=== PATIENT | female | born 1980 | race African-American/Black ===

== ENCOUNTER 2016-12-06 15:18 | Emergency (ER) | payer MEDICAID, OTHER ==
[~2016-12-06] VITALS: Ht 160 cm; Wt 77.0 kg
[~2016-12-06 15:18] MED LIST: METR-1 PO
[2016-12-06 15:21] VITALS: BP 119/90; PULSE 83; RESP 16; TEMP 98.4; O2SAT 100
[2016-12-06] MEDS ORDERED: METR-1 PO (15:44)
--- NOTE | 2016-12-06 15:56 | PD ---
HPI Chief Complaint: Cold / Flu Symptoms Time Seen by Provider: 15:44 Travel History International Travel<30 days: No Contact w/Intl Traveler<30days: No Traveled to known affect area: No History of Present Illness HPI 36-year-old female presents to the emergency room for evaluation of nonproductive cough, congestion, sore throat, and left ear pain for the past 3 days. Patient states she has been extremely fatigued and nauseous as well. She has not actually vomited. She has been taking dyov-lui-kqslind day and night medication and using cough drops without significant relief in symptoms. Patient worked all day yesterday and is requesting a work note for today. Denies objective fever, chills. She also is requesting prescription for Flagyl because she was diagnosed with chlamydia, Trichomonas, and bacterial vaginosis in June (5 months ago) and given a prescription at that time but was unable to fill it. States she recently got full Medicaid and can now afford the Flagyl. Patient reports continued vaginal discharge, itching, an occasional dysuria. States she has not had sexual intercourse since she was treated in June. [facility] Past Medical History Depression: Yes Diabetes: No Diminished Hearing: No Psychiatric: Yes (depression) Reproductive: Yes (CERVICAL DYSPLASIA) Immunizations Current: Yes ?: Not LMP: 3 WEEKS : 3 Para: 2 Miscarriage: 1 Past Surgical History Section: No Gynecologic Surgery: Yes (LEEP, LAPROSCOPY) Tonsillectomy: Yes Other Surgery: Yes ([facility]) Social History Alcohol Use: Yes ("VERY RARELY") Tobacco Use: Yes (1/2 PPD) Substance Use: Yes ("MARIJUANA OCCASIONALLY, NOT RECENT" STATED 06/22/16) Allergies-Medications (Allergen,Severity, Reaction): Coded Allergies: No Known Allergies (Unverified , 12/06/16) Reported Meds & Prescriptions Reported Meds & Active Scripts Active No Active Prescriptions or Reported Medications Review of Systems Except as stated in HPI: all other systems reviewed are Neg Physical Exam Narrative GENERAL: Well-nourished, well-developed female in no acute distress. Afebrile. Ambulatory. SKIN: Warm and dry. HEAD: Normocephalic. EYES: No scleral icterus. No injection or drainage. NECK: Supple, trachea midline. No JVD or lymphadenopathy. EARS: Bilateral pinnae and external canals appear within normal limits. Bilateral tympanic membranes without erythema, dullness or perforation. NOSE: Nasal turbinates appear normal without nasal blood, purulent drainage or septal hematoma. THROAT: Mucosa pink and moist. No erythema or exudates. No uvular edema. No uvular, palatal, or tonsillar deviation. Airway patent. CARDIOVASCULAR: Regular rate and rhythm without murmurs, gallops, or rubs. RESPIRATORY: Breath sounds equal bilaterally. No accessory muscle use. No crackles, rales, wheezes, or rhonchi. Data Data Last Documented VS Vital Signs Date Time Temp Pulse Resp B/P Pulse Ox O2 Delivery O2 Flow Rate FiO2 12/06/16 15:21 98.4 83 16 119/90 100 MDM Medical Decision Making Medical Screen Exam Complete: Yes Emergency Medical Condition: Yes Medical Record Reviewed: Yes Differential Diagnosis URI versus bronchitis versus sinusitis versus influenza Narrative Course 36-year-old female presents to the emergency room for evaluation of cough and cold symptoms for the past 3 days. Patient is afebrile and well-appearing in the emergency room. Vital signs stable. Physical exam reveals no evidence of bacterial infection in the ears, nose, throat, or lungs. Likely viral upper respiratory infection. Patient also requested prescription for Flagyl as she wasn't able to have it filled last time she was seen 5 months ago. She never followed up with a primary care physician or the health department. She reports continued symptoms of occasional dysuria, itching, discharge, and pelvic pain. Patient will be treated for Trichomonas and bacterial vaginosis with Flagyl. Told to follow up with a primary care physician and return for worsening symptoms. She understands and agrees to plan. Diagnosis Primary Impression: Upper respiratory infection Qualified Code: J00 - Acute nasopharyngitis Referrals: Primary Care Physician Patient Instructions: General Instructions, Upper Respiratory Infection (ED) Departure Forms: Tests/Procedures, Work Release Enter return to work date: Dec 08, 2016 Additional Instructions: Rest and drink plenty of fluids. Continue [id number] medications for symptoms. Take ibuprofen with food as directed, as needed for pain. Flagyl as directed, until gone. Follow-up with a primary care physician. Return to the emergency room for worsening symptoms. Med/Other Pt SpecificInfo: Prescription(s) given Scripts Metronidazole (Flagyl)500 Mg [id number] Mg PO Q12HR 7 Days Ref 0 Prov:Sexton,Grafton Z. MD 12/06/16 Disposition: 01 DISCHARGE HOME Condition: Stable Yana Martinez Dec 06, 2016 15:56
== END 2016-12-06 16:10 | disposition home or self-care (01) ==
LOC: PHEFT 15:18
DX: J06.9 Acute upper respiratory infection, unspecified (principal); N76.0 Acute vaginitis; A59.9 Trichomoniasis, unspecified; F32.9 Major depressive disorder, single episode, unspecified; F17.210 Nicotine dependence, cigarettes, uncomplicated
CPT/HCPCS: 99283